=== PATIENT | male | born 1950 | race Caucasian/White ===

== ENCOUNTER → 2017-11-14 | Outpatient (CLI) | payer OTHER ==
[~2017-11-14] MED LIST: ATOR10TA24 PO; ATOR20TA22 PO; CETI10CA8 PO; CHOL100058 PO; CHOL400C10 PO; CIPR500S3 PO; LUTE10TA3 PO; LUTE20CA11 PO; MULT-1335 PO; PHEN200T32 PO; PNEU0.5D3 IM; TAMS0.4C25 PO
== END ==
LOC: LAB 14:55
PROVIDERS: ATTEND Urology
DX: C61 Malignant neoplasm of prostate (principal)
CPT/HCPCS: 36415; 84153

== ENCOUNTER 2018-04-30 00:05 | Day surgery (SDC) | payer OTHER ==
[~2018-04-30] VITALS: Ht 170.2 cm; Wt 76.7 kg
[2018-04-30] VITALS (7 sets, daily range): BP systolic 89–134; BP diastolic 49–98
[~2018-04-30 00:05] MED LIST changes: +OMEG-11 PO
[2018-04-30] MEDS ORDERED: NORMOSOL R SOLN(*) 1000 ML BAG 1,000 ML IV PRN (06:30)
[2018-04-30] MEDS ORDERED: LIDOCAINE/SOD BICARB 8.4% SYR ID ONE (06:30)
[2018-04-30] MEDS ORDERED: PROPOFOL EMUL(*) 10MG/ML 20 ML 40 ML ONE (07:50)
[2018-04-30] MEDS ORDERED: KETOROLAC 30 MG/ML VIAL ONE (07:50)
--- NOTE | 2018-04-30 08:12 | Short(Outpt) Discharge Summary ---
Discharge Summary Reason for Hosp/Final Diag: (1) Screening for colon cancer Status: Chronic Hospital Course & Plan: Colonoscopy with polypectomy x1 completed without problems. Departure Discharge to: Home, Self Care Discharge Instructions Home Meds Active Scripts Atorvastatin Calcium (LIPITOR) 20 Mg Tablet, 1 TAB PO QDAY, #90 TAB 3 Refills Prov:FRANCES CONDE MD 01/22/18 Reported Medications [place]-3 Fatty Acids/Fish Oil (FISH OIL 1,000 MG CAPSULE) 1 Each Capsule, 1 EACH PO QDAY, CAPSULE 03/14/18 Multivitamin With Minerals (MULTIPLE VITAMIN) 1 Each Tablet, 1 EACH PO, TAB 08/12/17 Cholecalciferol (Vitamin D3) (VITAMIN D) 1,000 Unit Capsule, 1000 UNIT PO QDAY, CAPSULE 03/25/17 Lutein (LUTEIN) 20 Mg Capsule, 20 MG PO QDAY, CAPSULE 03/25/17 Diet: Regular Activity: As Tolerated Special Instructions: Your colonoscopy was completed without any problems and your prep was excellent (Good Job!!). I removed a very small polyp from your colon and it was sent to pathology. My office will call you in the next week or so and let you know what the polyp is and when your next colonoscopy should be (either 5 or 10 years) depending on pathology results. ARETHA JAIN MD Apr 30, 2018 08:12
== END 2018-04-30 09:50 | disposition home or self-care (01) ==
LOC: OR 00:05
PROVIDERS: ATTEND Surgery
DX: Z12.11 Encounter for screening for malignant neoplasm of colon (principal); K63.5 Polyp of colon; E78.5 Hyperlipidemia, unspecified; Z85.46 Personal history of malignant neoplasm of prostate
CPT/HCPCS: 00811; 45385; 88305; J1885; J2704